=== PATIENT | female | born 1995 ===

== ENCOUNTER 2017-09-13 19:05 | Emergency (ER) | payer OTHER ==
[2017-09-13 19:31] VITALS: BP 106/67; PULSE 71; RESP 16; TEMP 98.6; O2SAT 98
[2017-09-13] MEDS ORDERED: Sodium Chloride 0.9% 1,000 ML IV STA (20:02)
--- NOTE | 2017-09-13 20:18 | ED PDOC ---
Arrival/HPI - General Chief Complaint: Abdominal Pain Time Seen by Provider: 09/13/17 19:53 Historian: Patient - History of Present Illness Narrative History of Present Illness (Text): 09/13/17 20:18 A 22 year old female, whose past medical history includes asthma, presents to the emergency department complaining of nausea, vomiting and diarrhea for the past few days. Patient notes associated intermittent abdominal cramping. Patient denies any fever, chills, chest pain, shortness of breath or any other complaints. Time/Duration: Other (few days) Symptom Onset: Gradual Symptom Course: Unchanged Context: Home Past Medical History - Provider Review Nursing Documentation Reviewed: Yes - Psychiatric Hx Substance Use: No Family/Social History - Physician Review Nursing Documentation Reviewed: Yes Family/Social History: No Known Family HX Smoking Status: Never Smoked Hx Alcohol Use: Yes Frequency of alcohol use: Socially Hx Substance Use: No Allergies/Home Meds Allergies/Adverse Reactions: Allergies No Known Allergies Allergy (Verified 09/13/17 19:28) Review of Systems - Physician Review All systems were reviewed & negative as marked: Yes - Review of Systems Constitutional: absent: Fevers, Night Sweats Respiratory: absent: SOB Cardiovascular: absent: Chest Pain Gastrointestinal: Abdominal Pain, Diarrhea, Nausea, Vomiting Physical Exam Vital Signs Reviewed: Yes Vital Signs Temp Pulse Resp BP Pulse Ox 09/13/17 19:28 98.6 F 71 16 106/67 98 Temperature: Afebrile Blood Pressure: Normal Pulse: Regular Respiratory Rate: Normal Appearance: Positive for: Well-Appearing, Non-Toxic, Comfortable Pain Distress: None Mental Status: Positive for: Alert and Oriented X 3 - Systems Exam Head: Present: Atraumatic, Normocephalic Pupils: Present: PERRL Extroacular Muscles: Present: EOMI Conjunctiva: Present: Normal Mouth: Present: Moist Mucous Membranes Neck: Present: Normal Range of Motion Respiratory/Chest: Present: Clear to Auscultation, Good Air Exchange. No: Respiratory Distress, Accessory Muscle Use Cardiovascular: Present: Regular Rate and Rhythm, Normal S1, S2. No: Murmurs Abdomen: Present: Normal Bowel Sounds. No: Tenderness, Distention, Peritoneal Signs, Rebound, Guarding Back: Present: Normal Inspection Upper Extremity: Present: Normal Inspection. No: Cyanosis, Edema Lower Extremity: Present: Normal Inspection. No: Edema Neurological: Present: GCS=15, CN II-XII Intact, Speech Normal Skin: Present: Warm, Dry, Normal Color. No: Rashes Psychiatric: Present: Alert, Oriented x 3, Normal Insight, Normal Concentration Medical Decision Making ED Course and Treatment: 09/13/17 20:17 Impression: A 22 year old female with nausea, vomiting, diarrhea and abdominal cramping. Plan: -- Labs -- Urinalysis -- IV fluids and Zofran -- Reassess and disposition Progress Notes: 09/13/17 23:11 On re-evaluation, patient feels 100% better. Patient is stable for discharge. Patient was instructed to follow up with physician or return if symptoms worsen or new concerning symptoms arise. - Lab Interpretations Lab Results: 09/13/17 20:17 09/13/17 20:17 Lab Results 09/13/17 20:17: Urine Color Yellow, Urine Appearance Clear, Urine pH 6.0, Ur Specific [place] >= 1.030, Urine Protein Negative, Urine Glucose (UA) Negative, Urine Ketones Negative, Urine Blood Negative, Urine Nitrate Negative, Urine Bilirubin Negative, Urine Urobilinogen 0.2, Ur Leukocyte Esterase Negative, Urine HCG, Qual Negative 09/13/17 20:17: WBC 6.3, RBC 4.21, Hgb 12.8, Hct 37.2, MCV 88.4, MCH 30.4, MCHC 34.4, RDW 11.8, Plt Count 324, MPV 10.1 09/13/17 20:17: Sodium 140, Potassium 4.5, Chloride 103, Carbon Dioxide 24, Anion Gap 17, BUN 8, Creatinine 0.6 L, Est GFR ( Amer) > 60, Est GFR (Non -Af Amer) > 60, Random Glucose 94, Calcium 10.5, Total Bilirubin 0.5, AST 22, ALT 25, Alkaline Phosphatase 58, Total Protein 8.1, Albumin 4.5, Globulin 3.6, Albumin/Globulin Ratio 1.2, Lipase 70 I have reviewed the lab results: Yes - Medication Orders Current Medication Orders: Discontinued Medications Sodium Chloride (Sodium Chloride 0.9%) 1,000 mls @ 999 mls/hr IV .Q1H1M STA Stop: 09/13/17 21:02 Last Admin: 09/13/17 21:04 Dose: 999 mls/hr eMAR Start Stop Document 09/13/17 21:04 SS (Rec: 09/13/17 21:04 [id number]) Intravenous Solution Start Date 09/13/17 Start Time 21:04 End Date 09/13/17 End time 22:04 Total Infusion Time 60 Ketorolac Tromethamine (Toradol) 30 mg IVP ONCE ONE Stop: 09/13/17 22:34 Last Admin: 09/13/17 22:47 Dose: 30 mg MAR Pain Assessment Document 09/13/17 22:47 SS (Rec: 09/13/17 22:47 [id number]) Pain Reassessment Is this a pain reassessment? No IVP Administration Document 09/13/17 22:47 SS (Rec: 09/13/17 22:47 [id number]) Charges for Administration # of IVP Administrations 1 Ondansetron HCl (Zofran Inj) 4 mg IVP ONCE ONE Stop: 09/13/17 20:03 Last Admin: 09/13/17 21:03 Dose: 4 mg IVP Administration Document 09/13/17 21:03 SS (Rec: 09/13/17 21:03 [id number] Charges for Administration # of IVP Administrations 1 Disposition/Present on Arrival - Present on Arrival Any Indicators Present on Arrival: No History of DVT/PE: No History of Uncontrolled Diabetes: No Urinary Catheter: No History of Decub. Ulcer: No History Surgical Site Infection Following: None - Disposition Have Diagnosis and Disposition been Completed?: Yes Diagnosis: Gastroenteritis Disposition: HOME/ ROUTINE Disposition Time: 23:16 Patient Plan: Discharge Condition: GOOD Discharge Instructions (ExitCare): Gastroenteritis (ED) Additional Instructions: Drink small amounts of liquids at a time/advance diet slowly as tolerated/take meds as prescribed/follow up with your doctor this week Prescriptions: Phenobarb/Hyoscy/Atropine/Scop [ Tablet] 16.2 mg PO Q6 PRN #12 tablet PRN Reason: Dyspepsia Ondansetron [Zofran Odt] 4 mg PO Q6 PRN #12 odt PRN Reason: Nausea/Vomiting Referrals: Jemima Waterman MD [Primary Care Provider] - Follow up with primary Forms: [employer] (Slovak)
[2017-09-13 20:54] LABS: ALB/GLOB RATIO 1.2 (1.1-1.8); ALBUMIN 4.5 g/dL (3.0-4.8); ALT/SGPT 25 U/L (7-56); AST/SGOT 22 U/L (14-36); BLOOD UREA NITROGEN 8 mg/dL (7-21); CALCIUM 10.5 mg/dL (8.4-10.5); GFR AFRICAN-AMERICAN > 60; GFR NON-AFRICAN AMERICAN > 60; LIPASE 70 U/L (23-300)
[2017-09-13 20:56] LABS: HEMOGLOBIN 12.8 g/dL (12.0-16.0); MEAN CELL VOLUME 88.4 fl (80.0-105.0); MEAN CORPUSCULAR HEMOGLOBIN 30.4 pg (25.0-35.0); MEAN CORPUSCULAR HGB CONC 34.4 g/dl (31.0-37.0); MEAN PLATELET VOLUME 10.1 fl (7.0-11.0); RBC 4.21 10^6/uL (3.5-6.1); RED CELL DISTRIBUTION WIDTH 11.8 % (11.5-14.5); URINE BILIRUBIN NEGATIVE (NEGATIVE); URINE BLOOD NEGATIVE (NEGATIVE); URINE GLUCOSE (UA) NEGATIVE (NEGATIVE); URINE LEUKOCYTE ESTERASE NEGATIVE Leu/uL (NEGATIVE); URINE NITRATE NEGATIVE (NEGATIVE); URINE PROTEIN NEGATIVE mg/dL (<30 mg/dL); URINE UROBILINOGEN 0.2 E.U./dL (<1 E.U./dL); WHITE BLOOD COUNT 6.3 10^3/ul (4.5-11.0)
[2017-09-13 20:58] LABS: URINE APPEARANCE CLEAR (CLEAR); URINE COLOR YELLOW (YELLOW)
[2017-09-13 20:59] LABS: HCG,QUALITATIVE URINE NEGATIVE (NEGATIVE)
== END 2017-09-13 23:20 | disposition home or self-care (01) ==
LOC: ED 19:05 → MERGE 19:05 → ED 23:20
DX: K52.9 Noninfective gastroenteritis and colitis, unspecified (principal)
CPT/HCPCS: 80053; 81003; 83690; 84703; 85027; 96361; 96374; 96375; 99283; J1885; J2405; J7040

== ENCOUNTER 2018-08-05 12:49 | Emergency (ER) | payer MEDICAID ==
[2018-08-05 13:02] VITALS: RESP 18; TEMP 98.2
--- NOTE | 2018-08-05 13:40 | ED PDOC ---
Arrival/HPI - General Chief Complaint: Female Genitourinary Historian: Patient - History of Present Illness Narrative History of Present Illness (Text): 08/05/18 13:45 A 23 year old male, with no significant past medical history, presents to the emergency department complaining of vaginal discharge (white/cottage cheese color), itchiness, and abdominal cramping 1.5 weeks. Patient reports she is currently sexually active and has had the same partner for the past 2 years. Patient denies any dysuria, patient states when symptoms first began, she experienced dysuria, however no longer does, or any other complaints at this time. No PMD Past Medical History - Provider Review Nursing Documentation Reviewed: Yes - Infectious Disease Hx of Infectious Diseases: None - Cardiac Hx Cardiac Disorders: No - Pulmonary Hx Asthma: Yes - Neurological Hx Neurological Disorder: No - HEENT Hx HEENT Disorder: No - Renal Hx Renal Disorder: Yes - Endocrine/Metabolic Hx Endocrine Disorders: No - Hematological/Oncological Hx Blood Disorders: No - Integumentary Hx Dermatological Disorder: No - Musculoskeletal/Rheumatological Hx Musculoskeletal Disorders: No - Gastrointestinal Hx Gastrointestinal Disorders: No - Genitourinary/Gynecological Hx Genitourinary Disorders: No - Psychiatric Hx Psychophysiologic Disorder: No Hx Substance Use: No - Surgical History Other/Comment: KIDNEY BIOPSY - Anesthesia Hx Anesthesia: No - Suicidal Assessment Feels Threatened In Home Enviroment: No Family/Social History - Physician Review Nursing Documentation Reviewed: Yes Family/Social History: No Known Family HX Smoking Status: Never Smoked Hx Alcohol Use: No Hx Substance Use: No Allergies/Home Meds Allergies/Adverse Reactions: Allergies No Known Allergies Allergy (Verified 08/05/18 13:02) Review of Systems - Physician Review All systems were reviewed & negative as marked: Yes - Review of Systems Gastrointestinal: Abdominal Pain (abdominal cramping) Genitourinary Female: Vaginal Discharge (white/cottage cheese color). absent: Dysuria (patient states when symptoms first began, she experienced dysuria, however no longer does.) Skin: Pruritis (vaginal region) Physical Exam Vital Signs Reviewed: Yes Vital Signs Temp Pulse Resp BP Pulse Ox 08/05/18 12:59 98.2 F 81 18 101/69 98 Temperature: Afebrile Blood Pressure: Normal Pulse: Regular Respiratory Rate: Normal Appearance: Positive for: Well-Appearing, Non-Toxic, Comfortable Pain Distress: None Mental Status: Positive for: Alert and Oriented X 3 - Systems Exam Head: Present: Atraumatic, Normocephalic Pupils: Present: PERRL Extroacular Muscles: Present: EOMI Conjunctiva: Present: Normal Mouth: Present: Moist Mucous Membranes Neck: Present: Normal Range of Motion Respiratory/Chest: Present: Clear to Auscultation, Good Air Exchange. No: Respiratory Distress, Accessory Muscle Use Cardiovascular: Present: Regular Rate and Rhythm, Normal S1, S2 Abdomen: Present: Normal Bowel Sounds. No: Tenderness, Distention, Peritoneal Signs Genitourinary/Pelvic Exam: Present: Normal External Genitalia, Vaginal Discharge (whitish cottage cheese discharge noted in vaginal vault), Cervical os Closed. No: Vaginal Bleeding, Vaginal Lesions, Adenexal Tenderness, Adenexal Mass, Cervical Motion Tendernes, Odor Upper Extremity: Present: Normal Inspection. No: Cyanosis, Edema Lower Extremity: No: Edema Neurological: Present: GCS=15, CN II-XII Intact, Speech Normal Skin: Present: Warm, Dry, Normal Color. No: Rashes Psychiatric: Present: Alert, Oriented x 3, Normal Insight, Normal Concentration Medical Decision Making ED Course and Treatment: 08/05/18 13:45 Impression: 23 year old female with vaginal discharge (white/cottage cheese color), itchiness, and abdominal cramping Differential Diagnoses Include But Are Not Limited To: --Giana Vulvovaginitis --Bacterial Vaginosis --PID Plan: -- POC Urine Test -- Urinalysis --Flagyl --Keflex --Diflucan --Urine Culture -- GC Urine tets -- Reassess and disposition Progress Notes: 08/05/18 15:31 Urinalysis positive for bacteria. GC specimen sent to lab. Findings explained to patient who will be treated concomitantly for BV and Giana. Importance of following up with the guest room attendant for continued care. She is encouraged to continue monitoring her symptoms and to return to the Emergency department should discharge continue past 5 days. She demonstrates understanding and will follow up. Scripts provided. She is stable for discharge. - Lab Interpretations Lab Results: Lab Results 08/05/18 14:00: Urine Color Yellow, Urine Appearance Sl cloudy, Urine pH 6.5, Ur Specific [place] 1.020, Urine Protein Negative, Urine Glucose (UA) Negative, Urine Ketones Negative, Urine Blood Small H, Urine Nitrate Negative, Urine Bilirubin Negative, Urine Urobilinogen 0.2, Ur Leukocyte Esterase Large H, Urine RBC 1 - 3, Urine WBC 5 - 10, Ur Epithelial Cells 1 - 3, Urine Bacteria Small I have reviewed the lab results: Yes - Scribe Statement The provider has reviewed the documentation as recorded by the Bhavana Mykebryan Marti Provider Scribe Attestation: All medical record entries made by the Scribe were at my direction and personally dictated by me. I have reviewed the chart and agree that the record accurately reflects my personal performance of the history, physical exam, medical decision making, and the department course for this patient. I have also personally directed, reviewed, and agree with the discharge instructions and disposition. Disposition/Present on Arrival - Present on Arrival Any Indicators Present on Arrival: No History of DVT/PE: No History of Uncontrolled Diabetes: No Urinary Catheter: No History of Decub. Ulcer: No History Surgical Site Infection Following: None - Disposition Have Diagnosis and Disposition been Completed?: Yes Diagnosis: Vulvovaginal candidiasis, Bacterial vaginosis, UTI (urinary tract infection) Disposition: HOME/ ROUTINE Disposition Time: 14:23 Patient Plan: Discharge Condition: STABLE Discharge Instructions (ExitCare): Bacterial Vaginosis (DC), Urinary Tract Infection, Adult (DC), Vaginal Yeast Infection (DC) Print Language: PASHTO Additional Instructions: All medical record entries made by the Scribe were at my direction and personally dictated by me. I have reviewed the chart and agree that the record accurately reflects my personal performance of the history, physical exam, medical decision making, and the department course for this patient. I have also personally directed, reviewed, and agree with the discharge instructions and disposition. Please return to ED if symptoms return after 5 days. Prescriptions: Cephalexin [Keflex] 500 mg PO BID 5 Days #10 capsule Metronidazole [Flagyl] 500 mg PO BID 7 Days #14 tablet Referrals: Jemima Waterman MD [Primary Care Provider] - Follow up with primary Elvira Jimenez MD [Medical Doctor] - Follow up with primary [facility] at [facility] [Outside] - Follow up with primary Forms: [employer] (Tuvaluan), WORK NOTE
[2018-08-05 14:25] LABS: PH,URINE 6.5 (4.7-8.0); URINE BILIRUBIN NEGATIVE (NEGATIVE); URINE BLOOD SMALL (NEGATIVE); URINE GLUCOSE (UA) NEGATIVE (NEGATIVE); URINE LEUKOCYTE ESTERASE LARGE Leu/uL (NEGATIVE); URINE PROTEIN NEGATIVE mg/dL (<30 mg/dL); URINE UROBILINOGEN 0.2 E.U./dL (<1 E.U./dL)
[2018-08-05 14:27] LABS: URINE APPEARANCE SL CLOUDY (CLEAR); URINE COLOR YELLOW (YELLOW)
[2018-08-05 14:30] LABS: URINE BACTERIA SMALL (NEG)
[2018-08-05 15:26] VITALS: BP 108/72; PULSE 78; O2SAT 100
== END 2018-08-05 15:23 | disposition home or self-care (01) ==
LOC: ED 12:49
DX: N39.0 Urinary tract infection, site not specified (principal); B37.3 Candidiasis of vulva and vagina; B96.89 Other specified bacterial agents as the cause of diseases classified elsewhere